=== PATIENT | female | born 1965 | race Caucasian/White ===

== ENCOUNTER 2017-12-11 15:45 | Outpatient (CLI) | payer OTHER ==
--- NOTE | 2017-12-12 14:02 | Mammography Report ---
BILATERAL SCREENING MAMMOGRAM: 12/11/2017 COMPARISON: Mammogram 10/25/2014. INDICATION: Screening. TECHNIQUE: Routine CC and MLO projections were obtained of the breasts. FINDINGS: The breast parenchyma is heterogeneously dense which may limit the sensitivity of mammography. No dominant mass, architectural distortion or concerning cluster of microcalcifications is seen. IMPRESSION: 1. BI-RADS CATEGORY 1 - NEGATIVE. 2. RECOMMEND ANNUAL SCREENING MAMMOGRAM. STANDARD QUALIFYING STATEMENTS: 1. This examination was reviewed with the aid of Computer-Aided Detection (CAD) . 2. A negative or benign imaging report should not delay biopsy if clinically suspicious findings are present. Consider surgical consultation if warranted. More than 5 % of cancers are not identified by imaging. 3. Dense breasts may obscure an underlying neoplasm. TD: 12/12/2017 14:02 JAN
== END 2017-12-11 15:46 | disposition home or self-care (01) ==
LOC: DI.S 15:45
PROVIDERS: ATTEND Physician Assistant
DX: Z12.31 Encounter for screening mammogram for malignant neoplasm of breast (principal)
CPT/HCPCS: 77067

== ENCOUNTER 2018-02-03 06:58 | Day surgery (SDC) | payer OTHER ==
[2018-02-03] MEDS ORDERED: LACTATED RINGERS 1,000 ML IV ONE (07:07)
[2018-02-03] MEDS ORDERED: fentaNYL 250 MCG/5 ML VIAL IVP ONE (08:56)
[2018-02-03] MEDS ORDERED: MIDAZOLAM 2 MG/2 ML VIAL IVP ONE (08:56)
[2018-02-03 09:38] VITALS: BP 93/52
== END 2018-02-03 06:59 | disposition home or self-care (01) ==
LOC: SDS 06:58
PROVIDERS: ATTEND Surgery
PROC: 0DJD8ZZ Inspection of Lower Intestinal Tract, Via Natural or Artificial Opening Endoscopic (ICD-10-PCS; principal; 2018-02-03 08:30)
DX: Z12.11 Encounter for screening for malignant neoplasm of colon (principal); K64.8 Other hemorrhoids; Z87.891 Personal history of nicotine dependence
CPT/HCPCS: 45378; J3010; J7120

== ENCOUNTER 2019-02-02 14:03 | Outpatient (CLI) | payer OTHER ==
--- NOTE | 2019-02-03 09:33 | Mammography Report ---
Reason: ENCOUNTER FOR SCREENING MAMMOGRAM FOR MALIGNANT NE Procedure Date: 02/02/2019 Accession Number: [id number] / [id number] Procedure: EMANUEL - Screening Mammo w/David CPT Code: FULL RESULT: EXAM: Screening Mammo w/David DATE: 02/02/2019 3:25 PM CLINICAL HISTORY: Screening encounter. History of nulliparity. Family history of breast cancer in the father at age 84. TECHNIQUE: (B) - Bilateral CC and MLO views were obtained. A left laterally exaggerated CC views obtained. COMPARISON: 12/11/2017 and 10/25/2014. PARENCHYMAL PATTERN: (D) - The breast(s) demonstrate(s) heterogeneously dense fibroglandular parenchyma. FINDINGS: There are coarse typically benign calcifications. There are no suspicious masses, calcifications, or areas of distortion. IMPRESSION: Benign findings. BI-RADS category 2. RECOMMENDATION: (ANNUAL) - Recommend routine annual screening mammography. BI-RADS CATEGORY: (2) - Benign Findings. STANDARD QUALIFYING STATEMENTS: 1. This examination was not reviewed with the aid of Computer-Aided Detection (CAD). 2. A negative or benign imaging report should not preclude biopsy if clinically suspicious findings are present. 3. Dense breasts may obscure an underlying neoplasm. 4. This examination was reviewed with the aid of 3D breast imaging (tomosynthesis).
== END 2019-02-02 14:04 | disposition home or self-care (01) ==
LOC: DI 14:03
PROVIDERS: ATTEND Physician Assistant
DX: Z12.31 Encounter for screening mammogram for malignant neoplasm of breast (principal); Z80.3 Family history of malignant neoplasm of breast
CPT/HCPCS: 77063; 77067

== ENCOUNTER 2021-05-29 10:54 | Outpatient (CLI) | payer OTHER ==
--- NOTE | 2021-05-29 16:26 | DEXA Report ---
PROCEDURE: Dexa Spine and/or Hip INDICATIONS: POST MENOPAUSAL TECHNIQUE: Dual energy x-ray absorptiometry (DXA) was performed on a [employer] System. Regions measur ed are the AP Spine, femoral neck, and if needed forearm. COMPARISON: None. FINDINGS: Lumbar Spine: Bone Mineral Density 0.970 g/cm/cm,T score -1.8, moderate osteopenia Left Hip: Bone Mineral Density 0.863 g/cm/cm,T score -1.1, minimal osteopenia Left Femoral Neck: Bone Mineral Density 0.820 g/cm/cm, T score -1.6, mild to moderate osteopenia (T score greater or equal to -1.0: NORMAL) (T score from -1.1 to -2.4: OSTEOPENIA) (T score less than or equal to -2.5 to: OSTEOPOROSIS) Impression: Osteopenia most notable in the spine. Patients with diagnosis of osteoporosis or osteopenia should have regular bone mineral density assess ment. For those eligible for Medicare, routine testing is allowed once every 2 years. Testing frequ ency can be increased for patients who have rapidly progressing disease or for those who are receivin g medical therapy to restore bone mass. Reviewed by: Esme Erwin MD on 05/29/2021 4:25 PM PDT Approved by: Esme Erwin MD on 05/29/2021 4:25 PM PDT Station ID: [id number]
== END 2021-05-29 10:55 | disposition home or self-care (01) ==
LOC: DI 10:54
PROVIDERS: ATTEND Nurse Practitioner Family
DX: Z78.0 Asymptomatic menopausal state (principal); M85.89 Other specified disorders of bone density and structure, multiple sites

== ENCOUNTER 2021-05-31 14:18 | Outpatient (CLI) | payer OTHER ==
--- NOTE | 2021-06-01 13:19 | Mammography Report ---
BILATERAL DIGITAL SCREENING MAMMOGRAM 3D/2D WITH EXAGGERATED CC: 05/31/2021 CLINICAL: Family history of breast cancer. Comparison is made to exams dated: 02/02/2019 mammogram, 12/11/2017 mammogram, 10/25/2014 mammogram, and 02/18/2007 mammogram - [facility]. The tissue of both breasts is heterogeneously d ense. This may lower the sensitivity of mammography. No significant masses, calcifications, or other findings are seen in either breast. There has been no significant interval change. IMPRESSION: NEGATIVE There is no mammographic evidence of malignancy. A 1 year screening mammogram is recommended. This exam was interpreted at Station ID: [id number]. NOTE: For mammograms, a report in lay terms will be sent to the patient. Approximately 15% of breast malignancies will not be visualized mammographically. In the management of a palpable breast mass, a negative mammogram must not discourage biopsy of a clinically suspicious lesion. Electronically Signed By: Amy johnson/swathi:05/31/2021 16:28:39 ACR BI-RADS Category 1: Negative 3341F PARENCHYMAL PATTERN: (D) - The breast(s) demonstrate(s) heterogeneously dense fibroglandular andrei croft. BI-RADS CATEGORY: (1) - 1 RECOMMENDATION: (ANNUAL) - Recommend routine annual screening mammography. [id number] 1 year screening LATERALITY: (B)
== END 2021-05-31 14:19 | disposition home or self-care (01) ==
LOC: DI.S 14:18
PROVIDERS: ATTEND Nurse Practitioner Family
DX: Z12.31 Encounter for screening mammogram for malignant neoplasm of breast (principal); Z80.3 Family history of malignant neoplasm of breast

== ENCOUNTER 2021-05-31 14:22 | Outpatient (CLI) | payer OTHER ==
[2021-05-31 20:19] LABS: ALBUMIN 4.5 g/dL (3.2-5.5); ALBUMIN/GLOBULIN RATIO 1.7 (1.0-2.2); ALKALINE PHOSPHATASE 58 IU/L (42-121); ALT ALANINE AMINOTRANSFERASE 30 IU/L (10-60); AST ASPARTATE AMINOTRANSFERASE 30 IU/L (10-42); BILIRUBIN,TOTAL 0.9 mg/dL (0.2-1.0); BUN - BLOOD UREA NITROGEN 16 mg/dL (6-20); CALCIUM 9.5 mg/dL (8.5-10.3); CARBON DIOXIDE - CO2 28 mmol/L (21-32); CHLORIDE 99 mmol/L (101-111); CHOL/HDL RATIO 2.6 (<4.4); CHOLESTEROL 239 mg/dL; CREATININE 0.7 mg/dL (0.4-1.0); GFR - MDRD 87 (>89); GLUCOSE 106 mg/dL (70-100); HDL CHOLESTEROL 93 mg/dL; LDL CHOLESTEROL,CALCULATED 135 mg/dL; LDL/HDL RATIO 1.5 (<4.4); POTASSIUM 3.9 mmol/L (3.5-5.0); SODIUM 138 mmol/L (135-145); TOTAL PROTEIN 7.1 g/dL (6.7-8.2); TRIGLYCERIDES 56 mg/dL; VLDL CHOLESTEROL 11 mg/dL
[2021-06-02 08:27] LABS: HEPATITIS C ANTIBODY NON-REACTIVE (NON-REACTIVE)
[2021-06-03 15:12] LABS: HIV AG/AB 4TH GEN NON-REACTIVE (NON-REACTIVE)
== END 2021-05-31 14:23 | disposition home or self-care (01) ==
LOC: LAB.S 14:22
PROVIDERS: ATTEND Nurse Practitioner Family
DX: E78.5 Hyperlipidemia, unspecified (principal); Z11.59 Encounter for screening for other viral diseases; Z11.4 Encounter for screening for human immunodeficiency virus [HIV]
CPT/HCPCS: 36415; 80053; 80061; 83721; 86803; 87389

== ENCOUNTER 2022-07-02 13:59 | Outpatient (CLI) | payer OTHER ==
--- NOTE | 2022-07-04 10:13 | Mammography Report ---
BILATERAL DIGITAL SCREENING MAMMOGRAM 3D/2D WITH EXAGGERATED CC: 07/02/2022 CLINICAL: Routine screening. Family history of breast cancer. Comparison is made to exams dated: 05/31/2021 mammogram, 02/02/2019 mammogram, and 12/11/2017 mammogram - [facility]. Both breasts are heterogeneously dense, which may obscure small masses (category c / 51-75% glandula r tissue). No significant masses, calcifications, or other findings are seen in either breast. There has been no significant interval change. IMPRESSION: NEGATIVE There is no mammographic evidence of malignancy. A 1 year screening mammogram is recommended. Based on the Tyrer Cuzick model (a risk assessment model) the patients lifetime risk is 13.1% and he r 10 year risk is 4.6%. According to the ACR, ACS, and NCCN guidelines, an annual breast MRI exam rita ng with mammogram is recommended if the patients lifetime risk is 20% or greater. This exam was interpreted at Station ID: [id number]. NOTE: For mammograms, a report in lay terms will be sent to the patient. Approximately 15% of breast malignancies will not be visualized mammographically. In the management of a palpable breast mass, a negative mammogram must not discourage biopsy of a clinically suspicious lesion. Electronically Signed By: Woody dodd/[email or web address]:07/03/2022 09:31:00 ACR BI-RADS Category 1: Negative 3341F PARENCHYMAL PATTERN: (D) - The breast(s) demonstrate(s) heterogeneously dense fibroglandular andrei croft. BI-RADS CATEGORY: (1) - 1 RECOMMENDATION: (ANNUAL) - Recommend routine annual screening mammography. [id number] 1 year screening LATERALITY: (B)
== END 2022-07-02 14:00 | disposition home or self-care (01) ==
LOC: DI.S 13:59
PROVIDERS: ATTEND Nurse Practitioner Family
DX: Z12.31 Encounter for screening mammogram for malignant neoplasm of breast (principal); Z80.3 Family history of malignant neoplasm of breast

== ENCOUNTER 2022-07-02 14:07 | Outpatient (CLI) | payer OTHER ==
--- NOTE | 2022-07-02 17:26 | XRAY Report ---
PROCEDURE: Shoulder 3 View LT INDICATIONS: PAIN IN LEFT SHOULDER TECHNIQUE: 3 views of the shoulder were acquired. COMPARISON: None. FINDINGS: Bones: No fractures or dislocations. No suspicious bony lesions. Visualized ribs appear intact. Soft tissues: No suspicious soft tissue calcifications. IMPRESSION: Normal left shoulder. Reviewed by: Amy Townsend MD on 07/02/2022 5:24 PM PDT Approved by: Amy Townsend MD on 07/02/2022 5:24 PM PDT Station ID: [id number]
== END 2022-07-02 14:08 | disposition home or self-care (01) ==
LOC: DI.S 14:07
PROVIDERS: ATTEND Nurse Practitioner Family
DX: M25.512 Pain in left shoulder (principal)

== ENCOUNTER 2023-10-07 08:00 | Outpatient (CLI) | payer BC ==
--- NOTE | 2023-10-07 18:14 | XRAY Report ---
PROCEDURE: Ribs w/PA Chest 4+V BL INDICATIONS: CONTUSION OF RIGHT FRONT WALL OF THORAX TECHNIQUE: 3 views of the right ribs were acquired, along with a single view chest. COMPARISON: None. FINDINGS: Surgical changes and devices: None. Bones and chest wall: Mildly displaced and slightly impacted right posterior lateral 10th and 11th r ib fractures. The 10th rib is likely fractured in 2 places, more severely posterior and nondisplaced anteriorly. Lungs and pleura: No pleural effusions or pneumothorax. Lungs appear clear. Mediastinum: Mediastinal contours appear normal. Heart size is normal. IMPRESSION: 1. 10th and 11th right rib fractures 2. No evidence of underlying chest trauma such as pneumothorax or effusion. Reviewed by: Amy Townsend MD on 10/07/2023 6:12 PM PST Approved by: Amy Townsend MD on 10/07/2023 6:12 PM PST Station ID: [id number]
== END 2023-10-07 23:59 | disposition home or self-care (01) ==
LOC: DI.S 08:00
PROVIDERS: ATTEND Emergency Medicine
DX: S20.211A Contusion of right front wall of thorax, initial encounter (principal); S22.41XA Multiple fractures of ribs, right side, initial encounter for closed fracture

== ENCOUNTER 2024-01-24 13:46 | Outpatient (CLI) | payer BC ==
--- NOTE | 2024-01-24 14:26 | DEXA Report ---
PROCEDURE: Dexa Spine and/or Hip INDICATIONS: HORMONE REPLACEMENT THERAPY TECHNIQUE: Dual energy x-ray absorptiometry (DXA) was performed on a [employer] System. Regions measur ed are the AP Spine, femoral neck, and if needed forearm. COMPARISON: 05/29/2021 FINDINGS: Lumbar Spine: Bone Mineral Density: 1.033 g/cm/cm,T score: -1.2. Since the most recent prior study, there has been a statistically significant increase in bone mineral density by 6.5 percent. Left Femoral Neck: Bone Mineral Density: 0.815 g/cm/cm, T score: -1.6. Left Hip: Bone Mineral Density: 0.862 g/cm/cm,T score: -1.2. Since the most recent prior study, there has been a statistically significant decrease in bone mineral density by 0.1 percent. (T score greater or equal to -1.0: NORMAL) (T score from -1.1 to -2.4: OSTEOPENIA) (T score less than or equal to -2.5 to: OSTEOPOROSIS) Impression: By WHO criteria, this patient has low bone density (osteopenia). Interval statistical increase in bone mineral density of the lumbar spine. Interval statistical decre ase in bone mineral density of the hip. Patients with diagnosis of osteoporosis or osteopenia should have regular bone mineral density assess ment. For those eligible for Medicare, routine testing is allowed once every 2 years. Testing frequ ency can be increased for patients who have rapidly progressing disease or for those who are receivin g medical therapy to restore bone mass. Reviewed by: Kit Garcia MD on 01/24/2024 2:24 PM PDT Approved by: Kit Garcia MD on 01/24/2024 2:24 PM PDT Station ID: [id number]
== END 2024-01-24 13:47 | disposition home or self-care (01) ==
LOC: DI 13:46
PROVIDERS: ATTEND Internal Medicine
DX: M85.89 Other specified disorders of bone density and structure, multiple sites (principal); Z79.890 Hormone replacement therapy

== ENCOUNTER 2024-01-30 07:46 | Outpatient (CLI) | payer BC ==
[2024-01-30 15:09] LABS: BASOPHILS % (AUTO) 0.2 %; EOSINOPHILS # (AUTO) 0.1 10^3/uL (0.0-0.7); EOSINOPHILS % (AUTO) 2.4 %; HCT - HEMATOCRIT 44.4 % (37.0-47.0); HGB - HEMOGLOBIN 15.1 g/dL (12.0-16.0); LYMPHOCYTES # (AUTO) 1.5 10^3/uL (1.5-3.5); LYMPHOCYTES % (AUTO) 33.3 %; MEAN CORPUSCULAR HEMOGLOBIN 32.5 pg (27.0-31.0); MEAN CORPUSCULAR VOLUME 95.5 fL (81.0-99.0); MEAN PLATELET VOLUME 9.9 fL (7.9-10.8); MONOCYTES # (AUTO) 0.4 10^3/uL (0.0-1.0); MONOCYTES % (AUTO) 8.2 %; NEUTROPHILS # (AUTO) 2.5 10^3/uL (1.5-6.6); NEUTROPHILS % (AUTO) 55.7 %; PLT - PLATELET COUNT 227 10^3/uL (130-450); RED BLOOD COUNT 4.65 10^6/uL (4.20-5.40); RED CELL DISTRIBUTION WIDTH 12.8 % (12.0-15.0); WHITE BLOOD COUNT 4.5 x10^3/uL (4.8-10.8)
[2024-01-30 15:51] LABS: ALBUMIN 4.5 g/dL (3.2-5.5); ALBUMIN/GLOBULIN RATIO 1.6 (1.0-2.2); ALKALINE PHOSPHATASE 74 IU/L (42-121); ALT ALANINE AMINOTRANSFERASE 24 IU/L (10-60); AST ASPARTATE AMINOTRANSFERASE 27 IU/L (10-42); BILIRUBIN,TOTAL 0.7 mg/dL (0.2-1.0); BUN - BLOOD UREA NITROGEN 12 mg/dL (6-20); CALCIUM 9.8 mg/dL (8.5-10.3); CARBON DIOXIDE - CO2 26 mmol/L (21-32); CHLORIDE 102 mmol/L (101-111); CHOL/HDL RATIO 2.4 (<4.4); CHOLESTEROL 236 mg/dL; CREATININE 0.7 mg/dL (0.6-1.3); GFR - MDRD 86 (>89); GLUCOSE 88 mg/dL (74-104); HDL CHOLESTEROL 100 mg/dL; LDL CHOLESTEROL,CALCULATED 117 mg/dL; LDL/HDL RATIO 1.2 (<4.4); POTASSIUM 3.8 mmol/L (3.5-4.5); SODIUM 137 mmol/L (135-145); TOTAL PROTEIN 7.3 g/dL (6.4-8.9); TRIGLYCERIDES 97 mg/dL (48-352); VLDL CHOLESTEROL 19 mg/dL
[2024-01-30 16:03] LABS: THYROID STIMULATING HORMONE 6.37 uIU/mL (0.34-5.60)
[2024-01-30 20:31] LABS: ESTIMATED AVERAGE GLUCOSE 100 mg/dL (70-100); HEMOGLOBIN A1c% 5.1 % (4.27-6.07)
[2024-01-31 08:10] LABS: ESTRADIOL 14.8 pg/mL (.); VITAMIN D 25-HYDROXY 94.9 ng/mL (30.0-100.0)
== END 2024-01-30 07:47 | disposition home or self-care (01) ==
LOC: LAB.S 07:46
PROVIDERS: ATTEND Internal Medicine
DX: F43.0 Acute stress reaction (principal); Z79.890 Hormone replacement therapy; R06.09 Other forms of dyspnea; J30.2 Other seasonal allergic rhinitis
CPT/HCPCS: 36415; 80053; 80061; 82306; 82670; 83036; 83721; 84403; 84439; 84443; 85025